=== PATIENT | female | born 1985 | race Caucasian/White ===

== ENCOUNTER 2017-01-21 21:26 | Emergency (ER) | payer OTHER ==
[~2017-01-21] VITALS: Ht 160 cm; Wt 72.6 kg
[~2017-01-21 21:26] MED LIST: ANAPROX DS550 MG PO; BACTRIM DS 8001 TA1 PO; CLARITIN10 MG PO; CLEOCIN HCL300 MG PO; CLINDAMYCIN HC300 MG PO; CLINDAMYCIN150 MG PO; COMPAZINE10 MG PO; CYCLOBENZAPRINE10 MG PO; DIFLUCAN150 MG PO; EES400 MG PO; FLOMAX0.4 MG PO; HYDROCODONE BIT1 T11 PO; KEFLEX500 MG PO; LEADER ALL DAY PO; MOTRIN600 MG PO; MOTRIN800 MG PO; Motrin,Rufen800 MG PO; NAPROSYN500 MG PO; NORCO 325 MG-51 TAB PO; NYSTATIN CREAM15 GM T; OMEPRAZOLE40 MG PO; PARAFON FORTE500 MG PO; PRILOSEC10 M1 PO; PRILOSEC40 MG PO; SEPTRA DS 800 M1 TAB PO; TRAMADOL HCL50 MG PO; VICODIN 5/500 505 MG PO; ZANAFLEX4 M1 PO; ZANTAC150 MG PO; ZITHROMAX Z PA250 MG PO; ZITHROMAX250 MG PO; ZOFRAN4 MG PO; ZYRTEC10 MG PO
[2017-01-21] MEDS ORDERED: PREVACID30 M3 PO (21:45)
[2017-01-21 22:40] LABS: BASO % 0.2 % (0.0-1.0); EOS # 0.1 10*3/uL (0.0-0.4); EOS % 2.3 % (1.0-4.0); HEMATOCRIT 32.8 % (37.0-47.0); HEMOGLOBIN 10.4 g/dl (12.0-16.0); LYMPH # 1.2 10*3/uL (1.3-4.4); LYMPH % 21.2 % (27.0-41.0); MEAN CELL VOLUME 95.1 fl (81.0-99.0); MEAN CORPUSCULAR HGB 30.1 pg (27.0-31.0); MEAN CORPUSCULAR HGB CONC 31.7 g/dl (33.0-37.0); MEAN PLATELET VOLUME 9.6 fl (9.6-12.3); MONO # 0.5 10*3/uL (0.1-1.0); MONO % 9.5 % (3.0-9.0); NEUT # 3.8 10*3/uL (2.3-7.9); NEUT % 66.4 % (47.0-73.0); PLATELET COUNT AUTOMATED 148 10*3/uL (130-400); RED BLOOD COUNT 3.45 10*6/uL (4.10-5.10); RED CELL DISTRI WIDTH 13.2 % (0-14.5); WHITE BLOOD COUNT 5.7 10*3/uL (4.8-10.8)
[2017-01-21 22:57] LABS: ALBUMIN 3.6 gm/dl (3.1-4.5); ALKALINE PHOSPHATASE 62 U/L (45-117); BILIRUBIN, TOTAL 0.2 mg/dl (0.2-1.0); BUN 15 mg/dl (7-24); CARBON DIOXIDE 27 mmol/L (21-32); CHLORIDE 108 mmol/L (98-107); EST GLOM FILT AFRICAN AMERICAN > 60 ml/min; GLUCOSE 108 mg/dL (65-99); POTASSIUM 3.9 mmol/L (3.5-5.1); SGOT/AST 20 IU/L (3-35); SGPT/ALT 19 U/L (12-78); SODIUM 143 mmol/L (136-145); TOTAL PROTEIN 6.6 gm/dL (6.4-8.2)
[2017-01-21 23:00] LABS: BILIRUBIN NEGATIVE (NEGATIVE); BLOOD NEGATIVE (NEGATIVE); CLARITY SL CLOUDY (CLEAR); COLOR YELLOW (YELLOW); GLUCOSE NEGATIVE (NEGATIVE); KETONE NEGATIVE (NEGATIVE); LEUKO ESTERASE NEGATIVE (NEGATIVE); NITRITE NEGATIVE (NEGATIVE); PROTEIN NEGATIVE (NEGATIVE); SPECIFIC GRAVITY 1.015 (1.005-1.030); UROBILINOGEN 0.2 E.U./dl (0.2-1.0)
[2017-01-21 23:16] LABS: BACTERIA 3+; URINE REFLEX COMMENT YES (NO); WBC 0-2 wbc/hpf (0-5)
[2017-01-21] MEDS ORDERED: BENTYL10 MG PO (23:32)
[2017-01-21] MEDS ORDERED: ZANTAC 150150 MG PO (23:32)
== END 2017-01-22 00:32 | disposition home or self-care (01) ==
LOC: ED 21:26
PROVIDERS: Physician Assistant
DX: R10.13 Epigastric pain (principal); F17.200 Nicotine dependence, unspecified, uncomplicated; Z98.890 Other specified postprocedural states; Z79.899 Other long term (current) drug therapy; Z88.0 Allergy status to penicillin; Z87.442 Personal history of urinary calculi

== ENCOUNTER 2017-04-12 10:12 | Emergency (ER) | payer OTHER ==
[~2017-04-12] VITALS: Ht 160 cm; Wt 73.5 kg
[~2017-04-12 10:12] MED LIST changes: +BENTYL10 MG PO; +PREVACID30 M3 PO; +ZANTAC 150150 MG PO
[2017-04-12] MEDS ORDERED: OXAPROZIN600 M1 PO (10:18)
[2017-04-12] MEDS ORDERED: LANSOPRAZOLE30 MG PO (10:18)
[2017-04-12] MEDS ORDERED: MONTELUKAST SOD10 MG PO (10:18)
== END 2017-04-12 11:54 | disposition home or self-care (01) ==
LOC: ED 10:12
DX: S60.012A Contusion of left thumb without damage to nail, initial encounter (principal); Z79.899 Other long term (current) drug therapy; Z88.0 Allergy status to penicillin; W23.0XXA Caught, crushed, jammed, or pinched between moving objects, initial encounter; Y93.89 Activity, other specified; Y92.810 Car as the place of occurrence of the external cause; Y99.8 Other external cause status

== ENCOUNTER 2017-07-25 11:01 | Emergency (ER) | payer OTHER ==
[~2017-07-25] VITALS: Ht 160 cm; Wt 73.0 kg
[~2017-07-25 11:01] MED LIST changes: +LANSOPRAZOLE30 MG PO; +MONTELUKAST SOD10 MG PO; +OXAPROZIN600 M1 PO
[2017-07-25 11:45] LABS: BASO % 0.3 % (0.0-1.0); EOS # 0.2 10*3/uL (0.0-0.4); HEMATOCRIT 38.2 % (37.0-47.0); HEMOGLOBIN 12.6 g/dl (12.0-16.0); LYMPH # 0.5 10*3/uL (1.3-4.4); MEAN CELL VOLUME 91.8 fl (81.0-99.0); MEAN CORPUSCULAR HGB 30.3 pg (27.0-31.0); MEAN PLATELET VOLUME 9.2 fl (9.6-12.3); MONO # 0.3 10*3/uL (0.1-1.0); MONO % 3.9 % (3.0-9.0); NEUT # 6.5 10*3/uL (2.3-7.9); NEUT % 87.1 % (47.0-73.0); PLATELET COUNT AUTOMATED 193 10*3/uL (130-400); RED BLOOD COUNT 4.16 10*6/uL (4.10-5.10); RED CELL DISTRI WIDTH 12.8 % (0-14.5); WHITE BLOOD COUNT 7.5 10*3/uL (4.8-10.8)
[2017-07-25 11:55] LABS: BUN 18 mg/dl (7-24); CHLORIDE 107 mmol/L (98-107); CREATININE 0.95 mg/dL (0.55-1.02); POTASSIUM 4.5 mmol/L (3.5-5.1); SODIUM 141 mmol/L (136-145)
[2017-07-25 12:08] LABS: BILIRUBIN NEGATIVE (NEGATIVE); BLOOD NEGATIVE (NEGATIVE); CLARITY CLOUDY (CLEAR); COLOR YELLOW (YELLOW); GLUCOSE NEGATIVE (NEGATIVE); KETONE NEGATIVE (NEGATIVE); LEUKO ESTERASE NEGATIVE (NEGATIVE); NITRITE NEGATIVE (NEGATIVE); SPECIFIC GRAVITY >= 1.030 (1.005-1.030); UROBILINOGEN 0.2 E.U./dl (0.2-1.0)
[2017-07-25 12:22] LABS: BACTERIA 2+; CALCIUM OXALATE CRYSTALS 1+; EPITHELIAL CELLS 15-20; MUCOUS 2+
[2017-07-25] MEDS ORDERED: SEPTDS PO (12:35)
== END 2017-07-25 13:35 | disposition home or self-care (01) ==
LOC: ED 11:01
PROVIDERS: Emergency Medicine
DX: J32.9 Chronic sinusitis, unspecified (principal); F17.200 Nicotine dependence, unspecified, uncomplicated; Z98.890 Other specified postprocedural states; Z79.899 Other long term (current) drug therapy; Z88.0 Allergy status to penicillin

== ENCOUNTER 2018-10-04 11:58 | Emergency (ER) | payer OTHER ==
[~2018-10-04] VITALS: Ht 160 cm; Wt 71.7 kg
--- NOTE | ~2018-10-04 | EKG ---
[place], [place] ELECTROCARDIOGRAM REPORT NAME: ANNE BACH UNIT #: [id number] ROOM: DOCTOR: EDIN DRAFT REPORT BIRTHDATE: [birth year] [facility] Test Date: 2018-10-04 Test Time: 14:42:01 Pat Name: ANNE BACH Department: Room: Gender: F Leasing Representative: LATISHA : 1985 Requested By: ARUN LAGOS Order Number: [id number] Reading MD: Measurements Intervals [place] Rate: 75 P: 49 HI: 135 QRS: 40 QRSD: 88 T: 29 QT: 406 QTc: 454 Interpretive Statements Sinus rhythm No previous ECG available for comparison CM:EKGRPT:ELECTROCARDIOGRAM REPORT [id number] ARUN JESUS DRAFT REPORT ARUN LAGOS MD
[~2018-10-04 11:58] MED LIST changes: +SEPTDS PO
[2018-10-04] MEDS ORDERED: NORCO 5-325 TA1 EACH PO (12:52)
[2018-10-04] MEDS ORDERED: NAPROSYN500 MG PO (12:52)
[2018-10-04 14:42] LABS: HEMATOCRIT 38.7 % (37.0-47.0); HEMOGLOBIN 12.6 g/dl (12.0-16.0); MEAN CORPUSCULAR HGB 30.3 pg (27.0-31.0); MEAN CORPUSCULAR HGB CONC 32.6 g/dl (33.0-37.0); MEAN PLATELET VOLUME 9.7 fl (9.6-12.3); PLATELET COUNT AUTOMATED 160 10*3/uL (130-400); RED BLOOD COUNT 4.16 10*6/uL (4.10-5.10); RED CELL DISTRI WIDTH 13.2 % (0-14.5)
[2018-10-04 14:52] LABS: ACT PARTIAL THROMBO TIME 22.7 SECONDS (20.8-31.5); INTERNATIONAL NORM RATIO 0.9 (2.0-3.5)
[2018-10-04 14:53] LABS: BUN 22 mg/dl (7-24); CHLORIDE 105 mmol/L (98-107); CREATININE 1.01 mg/dL (0.55-1.02); POTASSIUM 3.8 mmol/L (3.5-5.1); SODIUM 139 mmol/L (136-145)
[2018-10-04 15:05] LABS: PLATELET SUFFICIENCY NORMAL (NORMAL); TOTAL CELLS COUNTED 100 #CELLS
[2018-10-06] MEDS ORDERED: TRAMADOL HCL50 MG PO (11:34)
[2018-10-06] MEDS ORDERED: DOXYCYCLINE100 M3 PO (11:35)
[2018-10-06] MEDS ORDERED: XARELTO10 MG PO (11:36)
== END 2018-10-04 14:18 | disposition home or self-care (01) ==
LOC: ED 11:58
PROVIDERS: Emergency Medicine
DX: S82.852A Displaced trimalleolar fracture of left lower leg, initial encounter for closed fracture (principal); S82.841A Displaced bimalleolar fracture of right lower leg, initial encounter for closed fracture; R03.0 Elevated blood-pressure reading, without diagnosis of hypertension; Z88.0 Allergy status to penicillin; Z79.2 Long term (current) use of antibiotics; Z79.899 Other long term (current) drug therapy; W00.0XXA Fall on same level due to ice and snow, initial encounter; Y93.89 Activity, other specified; Y92.89 Other specified places as the place of occurrence of the external cause; Y99.8 Other external cause status

== ENCOUNTER → 2019-03-15 | Outpatient (CLI) | payer OTHER ==
[~2019-03-15] MED LIST changes: +DOXYCYCLINE100 M3 PO; +HYDROCHLOROTH12.5 M3 PO; +IRON325 M1 PO; +Lovenox40 MG/0.4 PO; +NORCO 5-325 TA1 EACH PO; +PYRIDIUM200 M1 PO; +VITAMIN D31000 UNI1 PO; +XARELTO10 MG PO
[2019-03-15 10:45] LABS: ALBUMIN 4.4 gm/dl (3.1-4.5); BUN 18 mg/dl (7-24); CHLORIDE 106 mmol/L (98-107); CREATININE 1.07 mg/dL (0.55-1.02); SODIUM 138 mmol/L (136-145)
[2019-03-16 09:10] LABS: PROLACTIN 004465 5.7 ng/mL (4.8-23.3)
== END | disposition home or self-care (01) ==
LOC: LAB 09:56
PROVIDERS: Internal Medicine
DX: D35.2 Benign neoplasm of pituitary gland (principal); E55.9 Vitamin D deficiency, unspecified; G44.229 Chronic tension-type headache, not intractable

== ENCOUNTER 2019-03-17 15:39 | Emergency (ER) | payer OTHER ==
[~2019-03-17] VITALS: Ht 160 cm; Wt 78.9 kg
[~2019-03-17 15:39] MED LIST changes: -PYRIDIUM200 M1 PO
[2019-03-17 19:25] LABS: BILIRUBIN NEGATIVE (NEGATIVE); BLOOD 2+ (NEGATIVE); CLARITY CLOUDY (CLEAR); COLOR YELLOW (YELLOW); GLUCOSE NEGATIVE (NEGATIVE); KETONE TRACE (NEGATIVE); LEUKO ESTERASE 3+ (NEGATIVE); NITRITE NEGATIVE (NEGATIVE)
[2019-03-17 19:33] LABS: WBC TNTC wbc/hpf (0-5)
[2019-03-17] MEDS ORDERED: SEPTDS PO (19:41)
[2019-03-17] MEDS ORDERED: PYRIDIUM200 M1 PO (19:41)
== END 2019-03-17 19:53 | disposition home or self-care (01) ==
LOC: ED 15:39
PROVIDERS: Physician Assistant
DX: N39.0 Urinary tract infection, site not specified (principal); R51 Headache; R11.10 Vomiting, unspecified; R50.9 Fever, unspecified; R05 Cough; R69 Illness, unspecified; Z90.49 Acquired absence of other specified parts of digestive tract; Z98.890 Other specified postprocedural states; Z88.0 Allergy status to penicillin; Z79.899 Other long term (current) drug therapy

== ENCOUNTER → 2019-07-20 | Day surgery (SDC) | payer BC, OTHER ==
[~2019-07-20] VITALS: Ht 162.5 cm; Wt 78.9 kg
[~2019-07-20] MED LIST changes: +DAYPRO600 M1 PO; +PROPRANOLOL HCL10 MG PO; +PYRIDIUM200 M1 PO
--- NOTE | ~2019-07-20 | WRIGHTHP ---
[place], [place] PATIENT HISTORY AND PHYSICAL EXAM NAME: ANNE BACH UNIT #: [id number] ROOM: DOCTOR: ERLIN CHIN DPM BIRTHDATE: [birth year] DOS: 07/20/2019 LOWER EXTREMITY PHYSICAL EXAM: VASCULAR: There are intact pedal pulses, 2/4 DP and PT. Good cap refill time. NEUROLOGICAL: She has intact sensations, some paresthesias around the surgical site. DERMATOLOGIC: Well healed wounds. No open lesions. No ulcers. MUSCULOSKELETAL: Pain around the medial and lateral aspect of the lateral malleolus where the hardware is and also some discomfort around the ankle joint upon range of motion. Overall, she is doing very, very well with the range of motion and discomfort. ORTHOPEDIC EXAM: Painful hardware of medial and lateral aspect of lateral malleolus. ERLIN CHIN DPM CM:HISPHYS:PATIENT HISTORY AND PHYSICAL EXAMINATION 1107 1153 ERLIN CHIN DPM 07/20/19 1226 interface
--- NOTE | ~2019-07-20 | O ---
[place], [place] OPERATIVE NOTE [id number] UNIT #: [id number] ROOM: DOCTOR: ERLIN CHIN DPM BIRTHDATE: [birth year] DOS: 07/20/2019 SURGEON: Erlin Chin DPM DISTRIBUTION SPECIALIST: Dr. Manan Heart, Fellow PREOPERATIVE DIAGNOSES: Ankle synovitis, possible early stages of osteoarthritis, painful hardware, medial malleolus and painful hardware, lateral malleolus; all left. POSTOPERATIVE DIAGNOSES: Ankle synovitis, possible early stages of osteoarthritis, painful hardware, medial malleolus and painful hardware, lateral malleolus; all left. PROCEDURES: 1. Ankle arthroscopy with debridement and synovectomy, left ankle. 2. Removal of hardware, left lateral malleolus. 3. Removal of hardware, left medial malleolus. INDICATION: The patient was seen in preoperative holding area, appropriate site marking was performed and she and her concurred with the perioperative management and the site marked. She was brought to OR, placed well-padded on OR table. Anesthesia was achieved. Once the anesthesia was achieved, appropriate timeout was performed, everybody in the room approved and agreed. At this point in time, her left leg were prepped and draped in usual sterile fashion. Hemostasis was accomplished by mid-thigh tourniquet for less than 300 mmHg. PROCEDURE IN DETAIL: PROCEDURE #1: ANKLE ARTHROSCOPY WITH DEBRIDEMENT AND SYNOVECTOMY, LEFT ANKLE: Stab incision was made in the anterior medial to the tibialis anterior tendon at the ankle joint level. It was deepened in the same plane using sharp and blunt dissection, avoiding neurovascular structures. This was carried down to the joint capsule. At this time, a 60 mL of saline solution was used to insufflate the ankle joint, indicating that there is adhesive capsulitis and there are limitations of fluid that could be inserted indicating there is adhesive capsulitis. At this point in time, the equipment was removed and a 4.0 arthroscopy equipment scope was inserted into the ankle joint. Next, a lateral incision was made just lateral peroneal tertius deepened in the same plane using sharp postoperative neurovascular structures down to the deep tissues. At this point in time, a blunt probe was inserted. At this time, this was triangulated and there was noted to be tremendous amount of hemorrhagic and more chronic synovitis of the ankle joint. At this time with the synovitis be identified that was debrided extensively. The articular surface was noted to be in good position and some changes of the articular surface was noted, but overall the articular surface was noted to be very, very healthy in nature. The scope was removed and the skin was closed with 2-0 nylon. PROCEDURE #2: REMOVAL OF HARDWARE, LEFT LATERAL MALLEOLUS: Attention to the lateral aspect of the ankle where incision was made over previous incision. This was carried down to the deep tissues. At this time, the plate and screws [place], [place] OPERATIVE NOTE NAME: ISREALDecember UNIT #: [id number] ROOM: DOCTOR: ERLIN CHIN DPM BIRTHDATE: [birth year] were identified. They were excised and removed in total. The area was flushed with copious amounts of sterile saline and deep tissues with 0 Vicryl and skin with 2-0 nylon. PROCEDURE #3: REMOVAL OF HARDWARE, MEDIAL MALLEOLUS, PAINFUL HARDWARE, MEDIAL MALLEOLUS: Attention was directed to the medial malleolus from her previous incision. The skin incision was made. It was deepened in the same plane using sharp and blunt dissection, avoiding neurovascular structures, carried down to the plate and screws. I tighten the screws and plate were removed. It was irrigated with copious amounts of sterile saline and deep tissues with 0 Vicryl. Skin was using 2-0 nylon. She was anesthetized with 30 mL of 0.5% Marcaine about the surgical site proximal and 10 mg dexamethasone was injected into the ankle joint. The tourniquet was dropped. Good cap refill time was noted to return to all digits of the left foot. Good bleeding was noted and dry sterile dressing, Betadine-soaked Adaptic, 4 x 4s, Nella in a sterile compressive was applied. She tolerated the procedure and anesthesia well and left the OR and left the OR with vital signs stable and vascular status intact. ERLIN CHIN DPM CM:OPRECORD:OPERATIVE NOTE 1107 1156 ERLIN CHIN DPM 07/27/19 0636 interface
--- NOTE | ~2019-07-20 | WRIGHTHP ---
[place], [place] PATIENT HISTORY AND PHYSICAL EXAM NAME: ANNE BACH UNIT #: [id number] ROOM: DOCTOR: ERLIN CHIN DPM BIRTHDATE: [birth year] DOS: 07/20/2019 INDICATION NOTE: The patient sustained an ankle fracture last September. Subsequently, she has had open reduction and internal fixation done. She has done quite well; however, she is having some irritation of hardware. Also, she has some stiffness in the ankle joint and some vague subacute type discomfort. She is set for surgery today at [facility] on 07/20/2019 for removal of painful hardware, medial and lateral malleolus as well as ankle arthroscopy with the debridement, left ankle. With this in mind, she is aware of pros, cons, risks, benefits overcorrection, undercorrection, recurrence, numbness, infection, worsening DVT, PE, limb loss, anything can happen, nothing should happen. With this mind, she understands pros, cons, risks, benefits and surgery regarding her left ankle. She signed the consent of perioperative management. She understands with the surgical procedure and the site marking. ERLIN CHIN DPM CM:HISPHYS:PATIENT HISTORY AND PHYSICAL EXAMINATION 110 115 ERLIN CHIN DPM 07/20/19 1150 interface
[2019-07-20 07:23] VITALS: BP 121/77
[2019-07-20 11:02] VITALS: BP 139/93
[2019-07-20 11:17] VITALS: BP 138/96
[2019-07-20 11:32] VITALS: BP 139/99
[2019-07-20 11:47] VITALS: BP 132/92
[2019-07-20 12:01] VITALS: BP 132/92
== END | disposition home or self-care (01) ==
LOC: SDC 07-06 14:00
DX: T84.84XA Pain due to internal orthopedic prosthetic devices, implants and grafts, initial encounter (principal); M65.872 Other synovitis and tenosynovitis, left ankle and foot; M51.37 Other intervertebral disc degeneration, lumbosacral region; E55.9 Vitamin D deficiency, unspecified; M12.272 Villonodular synovitis (pigmented), left ankle and foot; K21.9 Gastro-esophageal reflux disease without esophagitis; G43.909 Migraine, unspecified, not intractable, without status migrainosus; Z98.890 Other specified postprocedural states; Z79.899 Other long term (current) drug therapy; Y83.8 Other surgical procedures as the cause of abnormal reaction of the patient, or of later complication, without mention of misadventure at the time of the procedure; Y92.89 Other specified places as the place of occurrence of the external cause; Z88.0 Allergy status to penicillin

== ENCOUNTER 2020-05-07 16:04 | Emergency (ER) | payer BC, OTHER ==
[~2020-05-07] VITALS: Ht 160 cm; Wt 77.1 kg
[2020-05-07] MEDS ORDERED: CEPHALEXIN500 M1 PO (16:26)
== END 2020-05-07 18:52 | disposition home or self-care (01) ==
LOC: ED 16:04
DX: S40.861A Insect bite (nonvenomous) of right upper arm, initial encounter (principal); Z88.0 Allergy status to penicillin; Z79.899 Other long term (current) drug therapy; W57.XXXA Bitten or stung by nonvenomous insect and other nonvenomous arthropods, initial encounter; Y93.89 Activity, other specified; Y92.89 Other specified places as the place of occurrence of the external cause; Y99.8 Other external cause status

== ENCOUNTER → 2021-10-10 | Outpatient (CLI) | payer OTHER ==
[~2021-10-10] MED LIST changes: +CEPHALEXIN500 M1 PO
== END | disposition home or self-care (01) ==
LOC: MRI 09:45
PROVIDERS: ATTEND Podiatrist Foot & Ankle Surgery
DX: S92.812A Other fracture of left foot, initial encounter for closed fracture (principal); M19.072 Primary osteoarthritis, left ankle and foot; X58.XXXA Exposure to other specified factors, initial encounter; Y93.89 Activity, other specified; Y92.89 Other specified places as the place of occurrence of the external cause; Y99.8 Other external cause status

== ENCOUNTER 2022-01-02 06:59 | Emergency (ER) | payer BC, OTHER ==
[~2022-01-02] VITALS: Wt 82.6 kg
[2022-01-02 08:04] LABS: BASO % 0.2 % (0.0-1.0); EOS # 0.1 10*3/uL (0.0-0.4); EOS % 1.4 % (1.0-4.0); HEMATOCRIT 37.6 % (37.0-47.0); LYMPH # 0.6 10*3/uL (1.3-4.4); LYMPH % 9.8 % (27.0-41.0); MEAN CELL VOLUME 88.9 fl (81.0-99.0); MEAN CORPUSCULAR HGB 28.4 pg (27.0-31.0); MEAN CORPUSCULAR HGB CONC 31.9 g/dl (33.0-37.0); MEAN PLATELET VOLUME 9.5 fl (9.6-12.3); MONO # 0.4 10*3/uL (0.1-1.0); MONO % 6.7 % (3.0-9.0); NEUT # 5.3 10*3/uL (2.3-7.9); NEUT % 81.6 % (47.0-73.0); PLATELET COUNT AUTOMATED 190 10*3/uL (130-400); RED BLOOD COUNT 4.23 10*6/uL (4.10-5.10); RED CELL DISTRI WIDTH 14.6 % (0-14.5); WHITE BLOOD COUNT 6.5 10*3/uL (4.8-10.8)
[2022-01-02 08:22] LABS: BUN 14 mg/dl (7-24); CHLORIDE 111 mmol/L (98-107); POTASSIUM 4.2 mmol/L (3.5-5.1); SGOT/AST 12 IU/L (3-35); SGPT/ALT 16 U/L (12-78); SODIUM 141 mmol/L (136-145)
[2022-01-02 08:25] LABS: ALKALINE PHOSPHATASE 89 U/L (45-117); CREATININE 0.89 mg/dL (0.55-1.02)
[2022-01-02 08:29] LABS: BETA-HCG, QUANT < 1.0 mIU/mL (1-3)
[2022-01-02] MEDS ORDERED: Motrin,Rufen800 MG PO (10:01)
== END 2022-01-02 10:49 | disposition home or self-care (01) ==
LOC: ED 06:59
PROVIDERS: Emergency Medicine
DX: K04.7 Periapical abscess without sinus (principal); Z79.899 Other long term (current) drug therapy; Z98.890 Other specified postprocedural states; Z90.49 Acquired absence of other specified parts of digestive tract

== ENCOUNTER → 2022-02-11 | Outpatient (CLI) | payer OTHER | END | disposition home or self-care (01) | LOC: RAD 13:27 | PROVIDERS: ATTEND Family Medicine | DX: M17.12 Unilateral primary osteoarthritis, left knee (principal) ==

== ENCOUNTER 2022-08-09 10:43 | Emergency (ER) | payer OTHER ==
[~2022-08-09] VITALS: Ht 160 cm; Wt 79.8 kg
[2022-08-09 12:16] LABS: BILIRUBIN Negative (Negative); BLOOD Negative (Negative); CLARITY Clear (Clear); COLOR Yellow (Yellow); GLUCOSE Negative (Negative); KETONE Negative (Negative); LEUKO ESTERASE Negative (Negative); NITRITE Negative (Negative); SPECIFIC GRAVITY 1.015 (1.001-1.030); UROBILINOGEN 0.2 E.U./dl (0.0-1.0)
[2022-08-09 12:25] LABS: BACTERIA 4+
[2022-08-09] MEDS ORDERED: SEPTDS PO (12:39)
== END 2022-08-09 12:57 | disposition home or self-care (01) ==
LOC: ED 10:43
PROVIDERS: Physician Assistant
DX: R82.71 Bacteriuria (principal); R30.0 Dysuria; Z88.0 Allergy status to penicillin; Z79.899 Other long term (current) drug therapy; Z98.890 Other specified postprocedural states; Z90.49 Acquired absence of other specified parts of digestive tract

== ENCOUNTER 2022-12-03 19:54 | Emergency (ER) | payer OTHER ==
[~2022-12-03] VITALS: Ht 162.5 cm; Wt 76.2 kg
[2022-12-03] MEDS ORDERED: NAPROSYN500 MG PO (21:53)
== END 2022-12-03 22:34 | disposition home or self-care (01) ==
LOC: ED 19:54
DX: M54.12 Radiculopathy, cervical region (principal); Z88.0 Allergy status to penicillin; Z79.899 Other long term (current) drug therapy; Z98.890 Other specified postprocedural states; Z90.49 Acquired absence of other specified parts of digestive tract

== ENCOUNTER → 2022-12-11 | Day surgery (SDC) | payer OTHER ==
[~2022-12-11] VITALS: Ht 162.5 cm; Wt 71.7 kg
[~2022-12-11] MED LIST changes: +CARAFATE1 G1 PO
[2022-12-11 07:25] VITALS: BP 136/82
[2022-12-11 07:51] VITALS: BP 125/81
[2022-12-11 08:05] VITALS: BP 133/84
[2022-12-11 08:21] VITALS: BP 134/90
== END | disposition home or self-care (01) ==
LOC: SDC 12-08 10:15
PROVIDERS: ATTEND Surgery
DX: K21.9 Gastro-esophageal reflux disease without esophagitis (principal); K29.50 Unspecified chronic gastritis without bleeding; G43.909 Migraine, unspecified, not intractable, without status migrainosus; F17.210 Nicotine dependence, cigarettes, uncomplicated; Z90.49 Acquired absence of other specified parts of digestive tract; Z98.890 Other specified postprocedural states; Z79.899 Other long term (current) drug therapy; Z88.0 Allergy status to penicillin

== ENCOUNTER 2023-03-08 00:11 | Emergency (ER) | payer OTHER ==
[~2023-03-08] VITALS: Ht 162.5 cm; Wt 76.2 kg
[2023-03-08] MEDS ORDERED: MELOXICAM15 MG PO (02:06)
== END 2023-03-08 03:00 | disposition home or self-care (01) ==
LOC: ED 00:11
DX: K08.89 Other specified disorders of teeth and supporting structures (principal); G43.909 Migraine, unspecified, not intractable, without status migrainosus; Z87.442 Personal history of urinary calculi; Z88.8 Allergy status to other drugs, medicaments and biological substances; Z88.0 Allergy status to penicillin; Z98.890 Other specified postprocedural states; Z90.49 Acquired absence of other specified parts of digestive tract; Z87.891 Personal history of nicotine dependence

== ENCOUNTER 2024-09-19 18:05 | Emergency (ER) | payer SELFPAY ==
[~2024-09-19] VITALS: Ht 162.5 cm; Wt 77.1 kg
[~2024-09-19 18:05] MED LIST changes: +MELOXICAM15 MG PO
[2024-09-19] MEDS ORDERED: Acetaminophen/Hydrocodone 5 MG/325 MG TABLET PO ONE (19:35)
[2024-09-19] MEDS ORDERED: CLINDAMYCIN HCL 300 MG CAPSULE PO ONE (19:35)
[2024-09-19] MEDS ORDERED: CLEOCIN HCL300 MG PO (19:36)
== END 2024-09-19 19:55 | disposition home or self-care (01) ==
LOC: ED 18:05
DX: K08.89 Other specified disorders of teeth and supporting structures (principal); R22.0 Localized swelling, mass and lump, head; G43.909 Migraine, unspecified, not intractable, without status migrainosus; Z87.442 Personal history of urinary calculi; Z88.0 Allergy status to penicillin; Z90.49 Acquired absence of other specified parts of digestive tract; Z98.890 Other specified postprocedural states

== ENCOUNTER 2024-11-01 07:41 | Emergency (ER) | payer OTHER ==
[~2024-11-01] VITALS: Ht 162.5 cm; Wt 77.1 kg
[2024-11-01] MEDS ORDERED: NAPROSYN500 MG PO (08:14)
[2024-11-01] MEDS ORDERED: NAPROXEN 250 MG TAB PO ONE (08:15)
== END 2024-11-01 08:18 | disposition home or self-care (01) ==
LOC: ED 07:41
DX: K04.7 Periapical abscess without sinus (principal); R22.0 Localized swelling, mass and lump, head; G43.909 Migraine, unspecified, not intractable, without status migrainosus; F17.200 Nicotine dependence, unspecified, uncomplicated; Z88.0 Allergy status to penicillin; Z98.890 Other specified postprocedural states; Z90.49 Acquired absence of other specified parts of digestive tract; Z87.442 Personal history of urinary calculi